=== PATIENT | male | born 1935 | race Caucasian/White ===

== ENCOUNTER 2019-05-03 13:54 | Emergency (ER) | payer MEDICARE ==
[2019-05-03 14:52] VITALS: BP 118/72
--- NOTE | 2019-05-03 15:04 | UC ---
Skin Complaint HPI - HPI Summary HPI Summary: 83-year-old male comes in with a chief complaint of a nonhealing right lower extremity wound. About a week ago he scraped his right chong. Had been healing up with the last day it's gotten worse it's more red. Has been applying Neosporin. No fevers or chills. The drainage has been serous. - History of Current Complaint Chief Complaint: UCLowerExtremity Time Seen by Provider: 05/03/19 14:36 Stated Complaint: RIGHT LEG SKIN Pain Intensity: 0 - Allergy/Home Medications Allergies/Adverse Reactions: Allergies Allergy/AdvReac Type Severity Reaction Status Date / Time No Known Allergies Allergy Verified 05/03/19 14:39 Home Medications: Home Medications Atorvastatin* [Lipitor*] 20 mg PO DAILY 05/03/19 [History Confirmed 05/03/19] Cholecalciferol TAB* [Vitamin D TAB*] 5,000 unit PO DAILY 05/03/19 [History Confirmed 05/03/19] Ginkgo Biloba 4 mg PO 05/03/19 [History] Levothyroxine Sodium [Levoxyl] 100 mcg PO DAILY 05/03/19 [History Confirmed 05/14] Lisinopril TAB* [Prinivil TAB*] 5 mg PO DAILY 05/03/19 [History Confirmed ] Milk Thistle 150 mg PO DAILY 05/03/19 [History Confirmed 05/03/19] PMH/Surg Hx/FS Hx/Imm Hx Previously Healthy: Yes Endocrine History: Hypothyroidism, Dyslipidemia Cardiovascular History: Hypertension - Surgical History Surgical History: Yes Surgery Procedure, Year, and Place: ABDOMINAL HERNIA REPAIR. PROSTATE SURGERY - Family History Known Family History: Positive: Non-Contributory - Social History Alcohol Use: Occasionally Substance Use Type: None Smoking Status (MU): Former Smoker When Did the Patient Quit Smoking/Using Tobacco: 1964 Review of Systems All Other Systems Reviewed And Are Negative: Yes Constitutional: Positive: Negative Skin: Positive: Other - see hpi Eyes: Positive: Negative ENT: Positive: Negative Respiratory: Positive: Negative Cardiovascular: Positive: Negative Gastrointestinal: Positive: Negative Motor: Positive: Negative Neurovascular: Positive: Negative Musculoskeletal: Positive: Negative Neurological: Positive: Negative Psychological: Positive: Negative Is Patient Immunocompromised?: No Physical Exam Triage Information Reviewed: Yes Appearance: Well-Appearing, No Pain Distress, Well-Nourished Vital Signs: Initial Vital Signs Temp 97.8 F 05/03/19 14:43 Pulse 68 05/03/19 14:43 Resp 15 05/03/19 14:43 BP 118/72 05/03/19 14:43 Pulse Ox 100 05/03/19 14:43 Vital Signs Reviewed: Yes Eye Exam: Normal Eyes: Positive: Conjunctiva Clear Neck: Positive: Supple Respiratory: Positive: No respiratory distress Musculoskeletal: Positive: Strength Intact, ROM Intact Neurological: Positive: Alert Psychological: Positive: Age Appropriate Behavior Skin: Positive: Other - On the right chong there are 2 areas of injury 1 is a half a centimeter and the other is 1.5 cm. There is surrounding erythema is no pus drainage there is no streaking. Course/Dx - Course Course Of Treatment: With the wound not healing the possibilities are infection or the Neosporin is causing irritation. Plan is to treat with Keflex 500 mg by mouth 3 times a day for 7 days and switch to mupirocin and stop the Neosporin get reevaluated sooner if worse or any questions or concerns. - Diagnoses Provider Diagnosis: Non-healing wound of lower extremity Discharge - Sign-Out/Discharge Documenting (check all that apply): Patient Departure All imaging exams completed and their final reports reviewed: No Studies - Discharge Plan Condition: Stable Disposition: HOME Prescriptions: Cephalexin CAP* [Keflex CAP*] 500 mg PO TID #21 cap Mupirocin 1 applic TOPICAL BID #22 gm Patient Education Materials: Wound Infection (ED) Referrals: [facility] [Outside] Additional Instructions: FOLLOW UP WITH YOUR DOCTOR IF NOT COMPLETELY IMPROVED. GET REEVALUATED SOONER IF WORSE OR ANY QUESTIONS OR CONCERNS. - Billing Disposition and Condition Condition: STABLE Disposition: Home
[2019-05-03] MEDS: Tetan/Diph/Pertus SYR(Tdap)* 0.5 ML SYR(BOOSTRIX) use SYR IM ONE (15:16)
== END 2019-05-03 15:21 | disposition home or self-care (01) ==
LOC: UCCORT 13:54
DX: X58.XXXA Exposure to other specified factors, initial encounter (principal); Y92.9 Unspecified place or not applicable; S81.801A Unspecified open wound, right lower leg, initial encounter; I10 Essential (primary) hypertension; E03.9 Hypothyroidism, unspecified; E78.5 Hyperlipidemia, unspecified; Z87.891 Personal history of nicotine dependence
CPT/HCPCS: 90715; 96372; 99202; G0463